=== PATIENT | female | born 1955 | race Asian ===

== ENCOUNTER 2023-03-07 13:43 | Emergency (ER) | payer OTHER ==
[2023-03-07 13:59] VITALS: BP 137/83; PULSE 81; RESP 16; TEMP 98.1; BMI 23.9
[2023-03-07] MEDS ORDERED: ACETAMINOPHEN 1000 MG/100 ML BAG IVPB ONE (14:33)
[2023-03-07] MEDS ORDERED: METOCLOPRAMIDE HCL INJECTION 10 MG/2 ML VIAL IVPUSH ONE (14:33)
[2023-03-07] MEDS ORDERED: SODIUM CHLORIDE 0.9% 500 ML INFUS.BAG IV ONE (14:33)
[2023-03-07] MEDS ORDERED: ALBUTEROL SO4 2.5/IPRATROPIUM 0.5 INH SOL 3 ML VIAL.NEB. NEB ONE ×2 (14:34→14:42)
[2023-03-07] MEDS ORDERED: ACETAMINOPHEN INJECTION 100 ML IVPB ONE (14:42)
[2023-03-07] MEDS ORDERED: METOCLOPRAMIDE HCL INJECTION 10 MG/2 ML VIAL ONE (14:42)
[2023-03-07] MEDS ORDERED: DEXAMETHASONE SOD PHOSPHATE 10 MG/1 ML VIAL IVPUSH ONE (16:45)
[2023-03-07] MEDS ORDERED: ALBUTEROL SO4 0.083% IH SOL 2.5 MG/3 ML VIAL.NEB. NEB ONE ×2 (17:03→17:06)
[2023-03-07] MEDS ORDERED: DEXAMETHASONE SOD PHOSPHATE 10 MG/1 ML VIAL ONE (17:06)
== END 2023-03-07 19:27 | disposition home or self-care (01) ==
LOC: FER 13:43
PROC: 3E033NZ Introduction of Analgesics, Hypnotics, Sedatives into Peripheral Vein, Percutaneous Approach (ICD-10-PCS; principal; 2023-03-07)
PROC: 3E033GC Introduction of Other Therapeutic Substance into Peripheral Vein, Percutaneous Approach (ICD-10-PCS; 2023-03-07)
PROC: 3E033GC Introduction of Other Therapeutic Substance into Peripheral Vein, Percutaneous Approach (ICD-10-PCS; 2023-03-07)
PROC: 3E033GC Introduction of Other Therapeutic Substance into Peripheral Vein, Percutaneous Approach (ICD-10-PCS; 2023-03-07)
PROC: 3E0F7GC Introduction of Other Therapeutic Substance into Respiratory Tract, Via Natural or Artificial Opening (ICD-10-PCS; 2023-03-07)
PROC: 3E0F7GC Introduction of Other Therapeutic Substance into Respiratory Tract, Via Natural or Artificial Opening (ICD-10-PCS; 2023-03-07)
DX: R05.9 Cough, unspecified (principal); R09.81 Nasal congestion; R51.9 Headache, unspecified; R07.9 Chest pain, unspecified; J45.901 Unspecified asthma with (acute) exacerbation; Z20.822 Contact with and (suspected) exposure to COVID-19
CPT/HCPCS: 0241U-QW; 70450-TC; 71046-TC-FY; 93005; 99285-25; J1100